=== PATIENT | male | born 1950 | race Caucasian/White ===

== ENCOUNTER 2023-05-31 12:31 | Outpatient (CLI) | payer OTHER ==
[~2023-05-31 12:31] MED LIST: Iopamidol 300 61% 100 ML VIAL FS ONE
== END 2023-05-31 12:32 | disposition home or self-care (01) ==
LOC: CSHCT 12:31
PROVIDERS: ATTEND Urology
DX: R31.0 Gross hematuria (principal); N28.1 Cyst of kidney, acquired; D35.02 Benign neoplasm of left adrenal gland; D35.01 Benign neoplasm of right adrenal gland; K57.30 Diverticulosis of large intestine without perforation or abscess without bleeding; R91.1 Solitary pulmonary nodule; N40.1 Benign prostatic hyperplasia with lower urinary tract symptoms
CPT/HCPCS: 74178; 82565; Q9967